=== PATIENT | female | born 1970 | race American Indian/Alaskan Native ===

== ENCOUNTER 2016-12-12 12:15 | Emergency (ER) | payer OTHER ==
[2016-12-12 12:27] VITALS: BP 145/96; RESP 18
[2016-12-12 12:36] VITALS: PULSE 67; TEMP 97.4; O2SAT 96
[2016-12-12] MEDS ORDERED: Naproxen 550 mg Tab PO STA (12:50)
[2016-12-12] MEDS ORDERED: Naproxen 550 mg Tab PO ONE (12:53)
--- NOTE | 2016-12-12 12:54 | C.PDOC ---
History Of Present Illness 46 y/o female with Hx of Tennis elbow presents to ED with complaints of left elbow pain for 4 months. Patient states pain radiates to upper shoulder making it difficult to move arm and reports taking 1 tablet of otc Naproxen sporadically for pain. Patient denies injury, numbness, tingling or any other complaints at this time. Time Seen by Provider: 12/12/16 12:32 Chief Complaint (Nursing): Upper Extremity Problem/Injury History Per: Patient History/Exam Limitations: no limitations Onset/Duration Of Symptoms: Days Current Symptoms Are (Timing): Still Present Past Medical History Reviewed: Historical Data, Nursing Documentation, Vital Signs Vital Signs: Last Vital Signs Temp 97.4 F L 12/12/16 12:29 Pulse 67 12/12/16 12:29 Resp 18 12/12/16 13:05 BP 145/96 H 12/12/16 12:29 Pulse Ox 96 12/12/16 13:52 - Medical History PMH: HTN Family History: States: No Known Family Hx - Social History Hx Alcohol Use: No Hx Substance Use: No - Immunization History Hx Tetanus Toxoid Vaccination: No Hx Influenza Vaccination: No Hx Pneumococcal Vaccination: No Review Of Systems Constitutional: Negative for: Fever, Chills Musculoskeletal: Positive for: Shoulder Pain, Arm Pain Skin: Negative for: Rash Neurological: Negative for: Weakness, Numbness Physical Exam - Physical Exam Appears: Non-toxic, No Acute Distress Skin: Normal Color, Warm, Dry Head: Atraumatic, Normacephalic Extremity: Tenderness (Left lateral elbow tenderness to epicondyle, Full ROM, able to pronate and supinate without difficulty. left shoulder non tender, from , non tender left wrist fingers and hand. no swelling, erythema or warmth to elbow. tender with extension and flexion of elbow. ), Capillary Refill (<2 seconds) Pulses: Left Radial: Normal Neurological/Psych: Oriented x3, Normal Speech, Normal Motor, Normal Sensation ED Course And Treatment O2 Sat by Pulse Oximetry: 96 (RA) Pulse Ox Interpretation: Normal Disposition Counseled Patient/Family Regarding: Diagnosis, Need For Followup, Rx Given - Disposition Referrals: [facility] [Outside] [facility] [Outside] Disposition: HOME/ ROUTINE Disposition Time: 12:54 Condition: STABLE Additional Instructions: Follow up in medical clinic; go to clinic today to make an appointment. Recommend orthopedics referral and physical therapy. Take 2 tablets of over the counter aleve (generic naproxen is fine as well) in the morning with food and one tablet at night, also with food. Return to ER for worse pain, numbness, tingling, redness or swelling to skin. Try to avoid use of the left arm for several days if possible. Wear TING bandage (during daytime only) if it provides some decrease in pain. 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 - Scribe Statement The provider has reviewed the documentation as recorded by the Liban Barton All medical record entries made by the Liban were at my direction and personally dictated by me. I have reviewed the chart and agree that the record accurately reflects my personal performance of the history, physical exam, medical decision making, and the department course for this patient. I have also personally directed, reviewed, and agree with the discharge instructions and disposition.
== END 2016-12-12 13:06 | disposition home or self-care (01) ==
LOC: C.ER 12:15
DX: G89.29 Other chronic pain (principal); M25.522 Pain in left elbow

== ENCOUNTER 2017-05-26 09:48 | Emergency (ER) | payer OTHER ==
[2017-05-26 10:01] VITALS: BMI 28.9
[2017-05-26 10:03] VITALS: BP 119/83; PULSE 93; RESP 18; TEMP 98.5; O2SAT 100
--- NOTE | 2017-05-26 16:12 | C.PDOC ---
History Of Present Illness 47 year old female presents to the ED for evaluation of right elbow pain which has been intermittent for 1 year. Patient has not taken any medicine to manage symptoms. Patient denies motor or sensory deficits at this time. Chief Complaint (Nursing): Upper Extremity Problem/Injury History Per: Patient History/Exam Limitations: no limitations Onset/Duration Of Symptoms: Intermittent Episodes (1 year) Current Symptoms Are (Timing): Still Present Quality: "Pain" Additional History Per: Patient Past Medical History Reviewed: Historical Data, Nursing Documentation, Vital Signs Vital Signs: Last Vital Signs Temp 98.5 F 05/26/17 10:01 Pulse 93 H 05/26/17 10:01 Resp 18 05/26/17 10:50 BP 119/83 05/26/17 10:01 Pulse Ox 100 05/26/17 16:16 - Medical History PMH: HTN Surgical History: No Surg Hx Family History: States: Unknown Family Hx - Social History Hx Alcohol Use: No Hx Substance Use: No - Immunization History Hx Tetanus Toxoid Vaccination: No Hx Influenza Vaccination: No Hx Pneumococcal Vaccination: No Review Of Systems Musculoskeletal: Positive for: Other (right elbow pain ) Neurological: Negative for: Weakness, Numbness Physical Exam - Physical Exam Appears: Non-toxic, No Acute Distress Skin: Normal Color, Warm, Dry Extremity: Normal ROM, No Tenderness, Capillary Refill (less than 2 seconds ), No Deformity, No Swelling Neurological/Psych: Oriented x3, Normal Speech, Normal Cognition, Normal Sensation ED Course And Treatment O2 Sat by Pulse Oximetry: 100 (on RA) Pulse Ox Interpretation: Normal Medical Decision Making Medical Decision Making: Progress: Motrin PO administered. Disposition - [facility] - Disposition: HOME/ ROUTINE Disposition Time: 10:35 Condition: GOOD Additional Instructions: Thank you for letting us take care of you today. The emergency medical care you received today was directed at your acute symptoms. If you were prescribed any medication, please fill it and take as directed. It may take several days for your symptoms to resolve. Return to the Emergency Department if your symptoms worsen, do not improve, or if you have any other problems. Please contact your doctor or call one of the physicians/clinics you have been referred to that are listed on the Patient Visit Information form that is included in your discharge packet. Bring any paperwork you were given at discharge with you along with any medications you are taking to your follow up visit. Our treatment cannot replace ongoing medical care by a primary care provider (PCP) outside of the emergency department. Thank you for allowing the [facility] team to be part of your care today. Follow up with your doctor in 3-4 days for re-evaluation and further management. Prescriptions: Ibuprofen [Motrin] 600 mg PO Q6 PRN #20 tab PRN Reason: Pain, Moderate (4-7) Instructions: Elbow Sprain (ED) Forms: [employer] (Italian) - Clinical Impression Clinical Impression: Chronic pain of left elbow - Scribe Statement The provider has reviewed the documentation as recorded by the Scribe (Bere Grey) Provider Attestation: All medical record entries made by the Scribe were at my direction and personally dictated by me. I have reviewed the chart and agree that the record accurately reflects my personal performance of the history, physical exam, medical decision making, and the department course for this patient. I have also personally directed, reviewed, and agree with the discharge instructions and disposition.
== END 2017-05-26 10:51 | disposition home or self-care (01) ==
LOC: C.ER 09:48
DX: M25.521 Pain in right elbow (principal)

== ENCOUNTER 2017-07-13 14:59 | Emergency (ER) | payer OTHER ==
[2017-07-13 14:59] VITALS: BMI 28.9
[2017-07-13 16:11] VITALS: RESP 18
[2017-07-13 17:09] LABS: HCG,QUALITATIVE URINE NEGATIVE (NEGATIVE)
[2017-07-13 17:15] LABS: SQUAMOUS EPITHIAL 3 /hpf (0-5); URINE BACTERIA RARE (<OCC); URINE BILIRUBIN NEGATIVE (NEGATIVE); URINE CLARITY Clear (Clear); URINE COLOR Straw (YELLOW); URINE GLUCOSE (UA) NORMAL (Normal); URINE LEUKOCYTE ESTERASE NEG Leu/uL (Negative); URINE NITRATE NEGATIVE (NEGATIVE); URINE PROTEIN NEGATIVE (NEGATIVE); URINE UROBILINOGEN NORMAL mg/dL (0.2-1.0)
[2017-07-13 17:21] LABS: URINE BLOOD TRACE (NEGATIVE)
--- NOTE | 2017-07-13 17:28 | C.PDOC ---
History Of Present Illness 47 yo female w/o significant PMHx come in for evaluation of bodyaches, sore throat gradually developed for past 3-4 days. Today, noted mild epigstric discomfort. Otherwise, denies lethargy, drooling, sever headache, neck pain, CP , SOB, dyspnea, wheezing, v/D, UTI sx. At the time of evaluation, pt is not in any apparent distress. Time Seen by Provider: 07/13/17 16:52 Chief Complaint (Nursing): Abdominal Pain History Per: Patient Past Medical History Reviewed: Historical Data, Nursing Documentation, Vital Signs Vital Signs: Last Vital Signs Temp 98.3 F 07/13/17 16:08 Pulse 84 07/13/17 16:08 Resp 18 07/13/17 16:08 BP 119/83 07/13/17 16:08 Pulse Ox 98 07/13/17 17:28 - Medical History PMH: HTN Family History: States: Unknown Family Hx - Social History Hx Alcohol Use: No Hx Substance Use: No - Immunization History Hx Tetanus Toxoid Vaccination: No Hx Influenza Vaccination: No Hx Pneumococcal Vaccination: No Review Of Systems Except As Marked, All Systems Reviewed And Found Negative. Constitutional: Positive for: Malaise. Negative for: Fever, Chills ENT: Positive for: Nose Congestion, Throat Pain, Throat Swelling. Negative for : Ear Discharge, Nose Discharge Cardiovascular: Negative for: Chest Pain, Palpitations Respiratory: Positive for: Cough. Negative for: Shortness of Breath, Wheezing Gastrointestinal: Positive for: Abdominal Pain. Negative for: Nausea, Vomiting , Diarrhea, Melena, Hematochezia, Hematemesis Genitourinary: Negative for: Dysuria, Frequency, Incontinence Musculoskeletal: Negative for: Neck Pain, Back Pain Skin: Negative for: Rash Neurological: Negative for: Altered Mental Status Physical Exam - Physical Exam Appears: Well, Non-toxic, No Acute Distress Skin: Normal Color, Warm, Dry, No Rash Head: Normacephalic Eye(s): bilateral: PERRL Ear(s): Bilateral: Normal Nose: No Flaring, No Discharge Oral Mucosa: Moist, No Drooling Throat: Erythema (MOD B/L), Exudate (B/L), No Drooling Neck: Trachea Midline, Supple Lymphatic: Adenopathy (mild B/L submandibular) Cardiovascular: Rhythm Regular Respiratory: No Decreased Breath Sounds, No Accessory Muscle Use, No Stridor, No Wheezing Gastrointestinal/Abdominal: Soft, No Tenderness, No Distention, No Guarding Back: No CVA Tenderness Extremity: Normal ROM, No Pedal Edema, No Deformity Neurological/Psych: Oriented x3, Normal Speech ED Course And Treatment - Laboratory Results Urine POC: Negative O2 Sat by Pulse Oximetry: 98 Pulse Ox Interpretation: Normal Progress Note: On re-evaluation, pt is awake, comforatble, not in any apparent distress. Afebrile, hemodynamicay stable. NOn-toxic. Tolerate Po well in ED. PuslEOx 98% RA. Neck: SUpple, (-) meningeal sign. ENT: exam c/w pharyngitis. Lungs: CTA B/L, BS equal B/L. Abd: benign. Neurologicaly intact. UA- normal study. Pt advised on course of ds. ref. to f/u with PMD in 2-3 days for re- eavl. return if any worsneing or new changes. Disposition Counseled Patient/Family Regarding: Studies Performed, Diagnosis, Need For Followup, Rx Given - Disposition Referrals: [facility] [Outside] Disposition: HOME/ ROUTINE Disposition Time: 17:32 Condition: STABLE Additional Instructions: ENCOURAGE FLUIDS TAKE MEDICATION PRESCRIBED FOLLOW UP WITH PMD IN 2-3 DAYS FOR RE-EVALUATION. RETURN TO ED IF ANY WORSENING OR NEW CHANGES. Prescriptions: Amoxicillin/Clavulanate [Augmentin 875 MG-125 MG] 1 tab PO BID #14 tab DiphenhydrAMINE [Benadryl] 25 mg PO BID #10 cap Instructions: Pharyngitis (ED) Forms: [employer] (Lao) - Clinical Impression Clinical Impression: Pharyngitis
[2017-07-13 17:58] VITALS: BP 110/74; PULSE 73; TEMP 97.4; O2SAT 99
== END 2017-07-13 17:58 | disposition home or self-care (01) ==
LOC: C.ER 14:59
DX: J02.9 Acute pharyngitis, unspecified (principal); I10 Essential (primary) hypertension

== ENCOUNTER 2017-07-30 08:59 | Emergency (ER) | payer OTHER ==
[2017-07-30 09:00] VITALS: BMI 34.5
[2017-07-30 09:08] VITALS: RESP 18
--- NOTE | 2017-07-30 10:05 | C.PDOC ---
History Of Present Illness 47 y/o female presents to ED with complaints of low abdominal pain since last night with associated vaginal bleeding. Patient states she not had menstrual cycle after 3.5 years. Patient also complaints of right shoulder pain and arm pain, chronic. She states she took Motrin with mild relief. Patient denies dizziness, fever, numbness, back pain or any other complaints at this time. Time Seen by Provider: 07/30/17 09:34 Chief Complaint (Nursing): Female Genitourinary History Per: Patient History/Exam Limitations: no limitations Onset/Duration Of Symptoms: Days Current Symptoms Are (Timing): Still Present Quality Of Discomfort: Cramping Past Medical History Reviewed: Historical Data, Nursing Documentation, Vital Signs Vital Signs: Last Vital Signs Temp 97.5 F L 07/30/17 11:34 Pulse 63 07/30/17 11:34 Resp 18 07/30/17 11:34 BP 141/91 H 07/30/17 11:34 Pulse Ox 99 07/30/17 13:23 - Medical History PMH: HTN Surgical History: No Surg Hx Family History: States: No Known Family Hx - Social History Hx Alcohol Use: No Hx Substance Use: No - Immunization History Hx Tetanus Toxoid Vaccination: No Hx Influenza Vaccination: No Hx Pneumococcal Vaccination: No Review Of Systems Constitutional: Negative for: Fever, Chills Gastrointestinal: Positive for: Abdominal Pain. Negative for: Nausea, Vomiting Genitourinary: Positive for: Vaginal Bleeding Musculoskeletal: Negative for: Back Pain Skin: Negative for: Rash Physical Exam - Physical Exam Appears: Non-toxic, No Acute Distress Skin: Warm, Dry, No Rash Head: Atraumatic, Normacephalic Eye(s): bilateral: Normal Inspection, EOMI Nose: Normal Oral Mucosa: Moist Neck: Normal ROM, Supple Chest: Symmetrical Cardiovascular: Rhythm Regular, No Murmur Respiratory: Normal Breath Sounds, No Rales, No Rhonchi, No Wheezing Gastrointestinal/Abdominal: Soft, Tenderness (suprapubic), No Distention, No Guarding, No Rebound Back: Normal Inspection, No CVA Tenderness Extremity: Normal ROM, No Deformity, Other (right elbow and upper arm, worse with pronation. No deformity or swelling. ) Pulses: Right Radial: Normal Neurological/Psych: Oriented x3, Normal Speech ED Course And Treatment - Laboratory Results Result Diagrams: 07/30/17 10:26 07/30/17 10:57 O2 Sat by Pulse Oximetry: 99 (RA) Pulse Ox Interpretation: Normal - CT Scan/US Pelvis/Transvaginal US Other Rad Studies (CT/US): Read By Radiologist, Radiology Report Reviewed CT/US Interpretation: HISTORY: vaginal bleeding, abnormal; no menses for 4 years. COMPARISON: None available. TECHNIQUE: Real-time transabdominal pelvic ultrasound was performed. In addition a transvaginal pelvic ultrasound was necessary to better depict pelvic anatomy. FINDINGS: UTERUS: Measures 7.8 x 4.4 x 5.8 cm. Retroverted. ENDOMETRIUM: Heterogeneous appearance of the endometrium which measures approximately 9 mm in diameter. Trace fluid noted within the endocervical canal. 1 mm endometrial calcification noted. CERVIX: No cervical abnormality identified. RIGHT OVARY: Measures 1.8 x 1.2 x 1.9 cm. Blood flow is demonstrated. LEFT OVARY: Measures 4.0 x 2.1 x 3.2 cm and contains 3.1 x 1.8 x 1.6 cm cyst. Blood flow is demonstrated. FREE FLUID: Small pelvic free fluid. OTHER FINDINGS: None. IMPRESSION: Heterogeneous appearance of the endometrium which is thickened in postmenopausal patient measuring approximately 9 mm in diameter. Trace fluid noted within the endocervical canal. 1 mm endometrial calcification noted. Recommend further evaluation with hysteroscopy if indicated. 3.1 cm left ovarian cyst. Recommend 6 week ultrasound follow-up in order to assess for resolution. Medical Decision Making Medical Decision Making: Impression: Vaginal bleeding Plan: Blood work, UA, Pelvis US ordered. Tylenol administered Progress: Labs reviewed and unremarkable US report reviewed, see full report Patient remained afebrile alert and oriented with stable vital signs during ER evaluation. Discussed results with patient, and copy of labs and US report was provided. Patient reports improvement of symptoms. Patient feels comfortable going home and will be discharged. Patient given follow up instructions, to see Refuge Manager in timely manner. Instructed to return to ER if symptoms worsen or new symptoms arise. Disposition Counseled Patient/Family Regarding: Diagnosis, Need For Followup - Disposition Referrals: [facility] [Outside] [facility] [[facility]] [facility] [Outside] [facility] [Outside] Disposition: HOME/ ROUTINE Disposition Time: 12:16 Condition: STABLE Additional Instructions: It is important that you follow up with sewing machine operator in timely manner regarding abnormal vaginal bleeding. Please take copy of US with you to your visit. IF you do not have an sewing machine operator follow up in our clinic. It is your responsibility to follow up for further evaluation. 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 - Scribe Statement The provider has reviewed the documentation as recorded by the Moreibandrés Barton All medical record entries made by the Liban were at my direction and personally dictated by me. I have reviewed the chart and agree that the record accurately reflects my personal performance of the history, physical exam, medical decision making, and the department course for this patient. I have also personally directed, reviewed, and agree with the discharge instructions and disposition.
[2017-07-30 10:35] LABS: BASO % 0.5 % (0.0-2.0); EOS # 0.2 K/uL (0.0-0.7); HEMOGLOBIN 12.2 g/dL (11.0-16.0); LYMPH # 1.6 K/uL (1.0-4.3); MEAN CELL VOLUME 84.4 fL (81.0-99.0); MEAN CORPUSCULAR HEMOGLOBIN 28.9 pg (27.0-31.0); MEAN CORPUSCULAR HGB CONC 34.2 g/dL (33.0-37.0); MEAN PLATELET VOLUME 10.6 fL (7.2-11.7); MONO # 0.5 K/uL (0.0-0.8); NEUT # 3.7 K/uL (1.8-7.0); NEUT % 61.5 % (50.0-75.0); RBC 4.21 Mil/uL (3.80-5.20); RED CELL DISTRIBUTION WIDTH 13.5 % (11.5-14.5)
[2017-07-30 10:42] LABS: INR 0.9; PROTHROMBIN TIME 10.6 SECONDS (9.7-12.2)
[2017-07-30 10:53] LABS: HCG,QUALITATIVE URINE NEGATIVE (NEGATIVE)
[2017-07-30 10:56] LABS: SQUAMOUS EPITHIAL < 1 /hpf (0-5); URINE BILIRUBIN NEGATIVE (NEGATIVE); URINE BLOOD 2+ (NEGATIVE); URINE CLARITY Clear (Clear); URINE COLOR Colorless (YELLOW); URINE GLUCOSE (UA) NORMAL (Normal); URINE LEUKOCYTE ESTERASE NEG Leu/uL (Negative); URINE NITRATE NEGATIVE (NEGATIVE); URINE PROTEIN NEGATIVE (NEGATIVE); URINE UROBILINOGEN NORMAL mg/dL (0.2-1.0)
[2017-07-30 11:17] LABS: ALBUMIN 3.8 g/dL (3.5-5.0); ALT/SGPT 34 U/L (9-52); AST/SGOT 26 U/L (14-36); BLOOD UREA NITROGEN 11 mg/dL (7-17); CALCIUM 8.9 mg/dl (8.6-10.4); GFR AFRICAN-AMERICAN > 60; GFR NON-AFRICAN AMERICAN > 60
[2017-07-30 11:35] VITALS: BP 141/91; PULSE 63; TEMP 97.5
--- NOTE | 2017-07-30 12:01 | US ---
HISTORY: vaginal bleeding, abnormal; no menses for 4 years COMPARISON: None available. TECHNIQUE: Real-time transabdominal pelvic ultrasound was performed. In addition a transvaginal pelvic ultrasound was necessary to better depict pelvic anatomy. FINDINGS: UTERUS: Measures 7.8 x 4.4 x 5.8 cm. Retroverted. ENDOMETRIUM: Heterogeneous appearance of the endometrium which measures approximately 9 mm in diameter. Trace fluid noted within the endocervical canal. 1 mm endometrial calcification noted. CERVIX: No cervical abnormality identified. RIGHT OVARY: Measures 1.8 x 1.2 x 1.9 cm. Blood flow is demonstrated. LEFT OVARY: Measures 4.0 x 2.1 x 3.2 cm and contains 3.1 x 1.8 x 1.6 cm cyst. Blood flow is demonstrated. FREE FLUID: Small pelvic free fluid. OTHER FINDINGS: None. IMPRESSION: Heterogeneous appearance of the endometrium which is thickened in postmenopausal patient measuring approximately 9 mm in diameter. Trace fluid noted within the endocervical canal. 1 mm endometrial calcification noted. Recommend further evaluation with hysteroscopy if indicated. 3.1 cm left ovarian cyst. Recommend 6 week ultrasound follow-up in order to assess for resolution.
[2017-07-30 12:18] VITALS: O2SAT 99
== END 2017-07-30 12:31 | disposition home or self-care (01) ==
LOC: C.ER 08:59
DX: N93.9 Abnormal uterine and vaginal bleeding, unspecified (principal); I10 Essential (primary) hypertension